=== PATIENT | female | born 1950 | race Caucasian/White ===

== ENCOUNTER 2024-09-01 11:47 | Emergency (ER) | payer OTHER ==
[~2024-09-01] VITALS: Ht 165.1 cm; Wt 77.1 kg
[2024-09-01] MEDS ORDERED: EPINEPHrine 1MG/10ML(1:10,000) 0.1 MG/ML SYG IVP ONE (11:48)
--- NOTE | 2024-09-01 12:02 | NUR ---
PER EMS, PHONE NUMBER THAT MADE THE CALL WAS FROM .
--- NOTE | 2024-09-01 12:02 | NUR ---
REFER TO CODE BLUE SHEET FOR FURTHER DOCUMENTATION.
[2024-09-01 12:03] VITALS: BP 0/0; PULSE 0; RESP 0
--- NOTE | 2024-09-01 12:51 | NUR ---
[employer] IS EN-ROUTE TO PROVIDE SPIRITUAL COMFORT TO THE PTS SPOUSE. HE JUST ARRIVED
--- NOTE | 2024-09-01 12:59 | NUR ---
DR. GUTIERREZ, MYSELF AND ANOTHER NURSE WITH PTS IN ROOM. GAVE PTS BELONGINGS.
--- NOTE | 2024-09-01 13:11 | NUR ---
CHAPLAIN MCCONNELL JUST ARRIVED AND IS AT BEDSIDE W/THE PT.
--- NOTE | 2024-09-01 13:11 | ERN ---
ED Note History of Present Illness Stated Complaint: CPR Chief Complaint: CPR/Full Arrest Time Seen by MD: 12:06 Dictation: 77-year-old female presents to the ED via EMS for witnessed cardiac arrest onset 11:10 a.m.. EMS reports they were called after patient had sustained a fall landing on her buttocks, negative head injury, negative LOC, no blood thinners. As per EMS upon their arrival patient was short of breath, had a seizure and after that stopped breathing. EMS intubated the patient with a 7.0 ET tube 23 cm at the teeth and administered 3 EPIs. Allergies: Coded Allergies: No Known Drug Allergies (Unverified Allergy, Unknown, 09/01/24) Past Medical History Past Medical History: Diabetes-Type II, High Cholesterol, Hypertension, Hypothyroid, Other Additional Past Medical Hx: ALZHEIMERS Surgical History: Unknown Review of System Dictation Unable to obtain ROS due to cardiac arrest Initial Vital Sign VS Vital Signs Date Time Temp Pulse Resp B/P (MAP) Pulse Ox O2 Delivery O2 Flow Rate FiO2 09/01/24 11:53 0 0 0/0 0 Ventilator 09/01/24 12:03 100 Physical Exam Dictation General: Patient is intubated with a 7.0 ET tube 23 cm at the teeth Head/Face: Normocephalic, atraumatic Eyes: Pupils are fixed, nonreactive Neck: Trachea midline Cardiovascular: No cardiac activity Respiratory: Coarse breath sounds with bag-valve ventilation MS/Extremity: cyanotic ED Course ED Course Vital Signs Date Time Temp Pulse Resp B/P (MAP) Pulse Ox O2 Delivery O2 Flow Rate FiO2 09/01/24 12:03 0 0 0/0 ETT Piece+ 100 09/01/24 11:53 0 0 0/0 0 Ventilator Medical Decision Making MDM MDM: Differential diagnosis: Cardiac arrest, respiratory failure Risk of complication and/or morbidity or mortality of patient management: None Medications-Per medication reconciliation Need for hospitalization: Patient does not meet criteria for hospitalization. Need for emergency major/minor surgery: No Procedure Procedure Dictation: CPR was initiated and ACLS protocol followed. Drugs: Epinephrine and sodium bicarb. Patient was previously intubated by EMS with a 7.0 ET tube 23 cm at teeth. Patient had no spontaneous respirations, heart sounds or spontaneity stimuli. Patient's pupils were fixed and dilated with no response to light. Prolonged down time was over 45 minutes. Resuscitation was deemed futile Time of was called at 11:57 a.m. patient's family was contacted and notified. Critical Care Note Critical Time: other (Total critical care time was 33 minutes. Excluding time for procedures. Management of critically ill patient with concern for acute decompensation. Management included CPR, high complexity decision making to assess, manipulate and support vital organ system failure.) DX & DISP Disposition: Departure Impression: Primary Impression: Cardiac arrest Condition: Referrals: SELF,REFERRAL (PCP) RUTHIE GUTIERREZ MD Sep 01, 2024 13:11
--- NOTE | 2024-09-01 13:35 | NUR ---
SPOUSE JUST LEFT. REFER TO CERTIFICATE. [facility] TO PROVIDE POST MORTEM CARE SERVICES.
--- NOTE | 2024-09-01 14:00 | NUR ---
POST MORTEM CARE COMPLETED. [place] [facility] [place].
== END 2024-09-01 14:40 ==
LOC: EDBD 11:47 → EDH 11:47
DX: I46.9 Cardiac arrest, cause unspecified (principal); E11.9 Type 2 diabetes mellitus without complications; E03.9 Hypothyroidism, unspecified; E78.00 Pure hypercholesterolemia, unspecified; I10 Essential (primary) hypertension
CPT/HCPCS: 99291; 92950; J0171; J3490